=== PATIENT | female | born 1985 | race Caucasian/White ===

== ENCOUNTER 2021-12-22 18:01 | Emergency (ER) | payer SELFPAY | END 2021-12-22 22:10 | disposition left against medical advice (07) | LOC: ER1 18:01 | DX: Z53.21 Procedure and treatment not carried out due to patient leaving prior to being seen by health care provider (principal) ==

== ENCOUNTER 2021-12-28 20:15 | Emergency (ER) | payer SELFPAY ==
[2021-12-28 21:13] LABS: HEMOGLOBIN 13.6 gm/dl (12.3-15.3); RED BLOOD COUNT 4.7 M/UL (4.00-5.10); WHITE BLOOD COUNT 12.1 K/UL (4.5-11.0)
[2021-12-28 21:39] LABS: BUN/CREATININE RATIO 13 (0-10)
== END 2021-12-28 23:17 | disposition home or self-care (01) ==
LOC: ER1 20:15
PROVIDERS: Emergency Medicine
DX: O09.521 Supervision of elderly multigravida, first trimester (principal); O03.9 Complete or unspecified spontaneous abortion without complication; Z51.81 Encounter for therapeutic drug level monitoring
CPT/HCPCS: 76815; 80053; 82550; 82553; 84484; 84702; 85025; 85610; 85730; 86850; 86900; 86901; 96374; 99284; J1885